=== PATIENT | female | born 1985 | race Hispanic/Latino ===

== ENCOUNTER → 2023-12-14 | Outpatient (CLI) | payer OTHER ==
--- NOTE | 2023-12-14 16:56 | HMCIMG ---
LUMBAR SPINE 2-3VWS HISTORY: Avascular necrosis COMPARISON: None FINDINGS: 3 images of lumbar spine were obtained. Bilateral hip prosthesis are seen. There is straightening of normal lordotic curvature which may be related to muscle spasm or positioning. No loss of vertebral height is seen. No fracture or dislocation is seen. Degenerative changes are seen. IMPRESSION: 1. No fracture is seen.
--- NOTE | 2023-12-14 16:57 | HMCIMG ---
HIP UNILAT 2-3VW LEFT HISTORY: Avascular necrosis COMPARISON: None TECHNIQUE: 2 images of left hip were obtained. 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 There is no acute displaced fracture or dislocation. Degenerative changes are seen. IMPRESSION: 1. Findings as described above.
--- NOTE | 2023-12-14 17:05 | HMCIMG ---
HIP UNILAT 2-3VW RIGHT HISTORY: Avascular necrosis COMPARISON: None TECHNIQUE: 3 images of bilateral hips were obtained. FINDINGS: Bilateral hip replacement changes are seen. There is no acute displaced fracture or dislocation. Degenerative changes are seen. IMPRESSION: 1. Findings as described above.
== END | disposition home or self-care (01) ==
LOC: RAH 15:38
PROVIDERS: ATTEND Internal Medicine
DX: M16.0 Bilateral primary osteoarthritis of hip (principal); M87.9 Osteonecrosis, unspecified
CPT/HCPCS: 72100; 73502